=== PATIENT | female | born 1990 | race Caucasian/White ===

== ENCOUNTER → 2024-04-29 | Outpatient (CLI) | payer BC ==
[2024-04-29 11:38] LABS: BASOPHIL % 0.4 % (0.1-1.2); EOSINOPHIL # 0.1 10^3/uL (0.0-0.2); EOSINOPHIL % 1.7 % (0.0-5.0); HEMATOCRIT(ML) 47.3 % (36.0-46.0); HEMOGLOBIN 15.4 g/dL (12.0-15.0); IG % 0.1 % (0.00-0.50); LYMPHOCYTES # 0.81 10^3/uL1 (1.0-4.8); LYMPHOCYTES % 11.4 % (24.0-44.0); MEAN CORP HGB 29.1 pg (26-34); MEAN CORP HGB CONCENTRATION 32.6 g/dL (33-36.5); MEAN CORP VOLUME 89.2 fL (78-100); MONOCYTES # 0.5 10^3/uL (0.3-0.8); MONOCYTES % 6.4 % (5.0-12.0); NEUTROPHIL # 5.7 10^3/uL (1.8-7.7); RED BLOOD CELL 5.3 10^6/uL (4.00-5.20); RED CELL DISTRIBUTION WIDTH 12.9 % (11.5-14.5); WHITE BLOOD CELL 7.1 10^3/uL (4.5-11.0)
[2024-04-29 12:22] LABS: ALBUMIN(ML) 4.2 g/dL (3.4-5.0); ALBUMIN/GLOBULIN RATIO 1.2; ANION GAP 11.1; BUN/CREATININE RATIO 13.59 (10.0-20.0); CALCIUM 8.9 mg/dL (8.4-10.5); CARBON DIOXIDE 26.7 mmol/L (20.0-32); CREATININE SERUM 1.03 mg/dL (0.59-1.40); EST GFR, NON-AA 62.1 (>/=60); POTASSIUM 3.8 mmol/L (3.6-5.2)
== END | disposition home or self-care (01) ==
LOC: LAB 11:14
PROVIDERS: ATTEND Nurse Practitioner Family
DX: L02.419 Cutaneous abscess of limb, unspecified (principal); R50.9 Fever, unspecified
CPT/HCPCS: 36415; 80053; 84145; 85025